=== PATIENT | female | born 1950 | race Caucasian/White ===

== ENCOUNTER → 2017-03-23 | Outpatient (CLI) | payer MEDICARE, OTHER ==
[~2017-03-23] MED LIST: ADVIL200 MG PO; AMLODIPINE BESYL5 MG PO; ASPIR 8181 M1 PO; ASPIRIN325 MG PO; ATORVASTATIN CA80 MG PO; BENICAR HCT 201 EACH PO; CLONIDINE HCL0.1 MG PO; CLOPIDOGREL75 MG PO; FIORICET 50-301 EACH PO; GLIMEPIRIDE4 MG PO; GLUCOPHAGE1000 MG PO; LISINOPRIL-HCT1 EAC3 PO; SUMATRIPTAN SUC25 MG PO; TYLENOL EXTRA500 MG PO; Vitamin B-12 PO
== END | disposition home or self-care (01) ==
LOC: CDC 12:45
DX: I25.10 Atherosclerotic heart disease of native coronary artery without angina pectoris (principal)
CPT/HCPCS: 93000

== ENCOUNTER 2017-03-31 08:02 | Day surgery (SDC) | payer OTHER ==
[~2017-03-31] VITALS: Ht 160 cm; Wt 64.4 kg
[~2017-03-31 08:02] MED LIST changes: +AMLODIPINE BESY10 MG PO; +CALCITRIOL0.25 MCG PO; +CYANOCOBALAM1000 MCG PO; +LABETALOL HCL200 MG PO; +VITAMIN D32000 UNI1 PO
[2017-03-31 08:37] VITALS: BP 147/71
[2017-03-31 09:06] LABS: MCH 28.6 PG (29.0-34.0); MCHC 32.7 G/DL (30.0-36.0); MCV 87.5 FL (83-99); MEAN PLAT.VOLUME 9.7 uM^3 (9.5-12.4); PLATELET COUNT 216 K/uL (156-360); RBC DIS.WIDTH-CV 14.1 % (11.8-14.6); RBC DIS.WIDTH-SD 45.4 % (39-53); RED BLOOD COUNT 3.43 M/uL (3.80-5.20); WHITE BLOOD COUNT 9.1 K/uL (4.1-10.2)
[2017-03-31 09:30] LABS: ANION GAP 12 MEQ/L (2-14); CHLORIDE 108 MEQ/L (99-109); GFR ESTIMATE (CALCULATED) 10 mL/min/; GLUCOSE 107 mg/dL (70-99); POTASSIUM 4.4 MEQ/L (3.7-5.4); SAMPLE HEMOLYSIS CHECK 0; SAMPLE ICTERIC CHECK 0; SAMPLE LIPEMIA CHECK 0; SODIUM 141 MEQ/L (136-147); UREA NITROGEN (BUN) 63 mg/dL (9-23)
[2017-03-31 11:36] LABS: POINT-OF-CARE USER ID 515036437
[2017-03-31 16:50] VITALS: BP 126/80
[2017-03-31 17:33] VITALS: BP 134/57
== END 2017-03-31 17:50 | disposition home or self-care (01) ==
LOC: SDC 08:02
PROVIDERS: Surgery
PROC: 03180JD Bypass Left Brachial Artery to Upper Arm Vein with Synthetic Substitute, Open Approach (ICD-10-PCS; principal; 2017-03-31)
PROC: 05WY0JZ Revision of Synthetic Substitute in Upper Vein, Open Approach (ICD-10-PCS; 2017-03-31)
DX: I12.0 Hypertensive chronic kidney disease with stage 5 chronic kidney disease or end stage renal disease (principal); E11.22 Type 2 diabetes mellitus with diabetic chronic kidney disease; N18.6 End stage renal disease; Z86.73 Personal history of transient ischemic attack (TIA), and cerebral infarction without residual deficits; E78.00 Pure hypercholesterolemia, unspecified; Z79.82 Long term (current) use of aspirin; T82.898A Other specified complication of vascular prosthetic devices, implants and grafts, initial encounter; Y83.2 Surgical operation with anastomosis, bypass or graft as the cause of abnormal reaction of the patient, or of later complication, without mention of misadventure at the time of the procedure
CPT/HCPCS: 80048; 82948; 85027; C2628; J0690; J1644; J2250; J2405; J2720; J2765; J3010

== ENCOUNTER 2017-04-02 19:08 | Inpatient (IN) | payer OTHER ==
[~2017-04-02] VITALS: Ht 160 cm; Wt 68.2 kg
[2017-04-02 20:53] LABS: BASOPHIL COUNT 0.1 K/uL (0-0.1); EOSINOPHIL COUNT 0.2 K/uL (0-0.3); HEMATOCRIT 28.9 % (36.0-46.0); IMMATURE GRANULOCYTE (%) 0.7 % (0.0-0.7); IMMATURE GRANULOCYTE COUNT 0.1 K/uL; LYMPHOCYTE COUNT 0.8 K/uL (1.0-2.8); MCH 28.9 PG (29.0-34.0); MCHC 32.5 G/DL (30.0-36.0); MCV 88.9 FL (83-99); MEAN PLAT.VOLUME 10.1 uM^3 (9.5-12.4); MONOCYTE (%) 8.4 % (3-12); MONOCYTE COUNT 1.4 K/uL (0-0.8); NEUTROPHIL (%) 84.5 % (45-76); PLATELET COUNT 201 K/uL (156-360); RBC DIS.WIDTH-CV 14.3 % (11.8-14.6); RBC DIS.WIDTH-SD 46.5 % (39-53); RED BLOOD COUNT 3.25 M/uL (3.80-5.20); WHITE BLOOD COUNT 16.6 K/uL (4.1-10.2)
[2017-04-02 21:00] LABS: CHLORIDE 108 mEq/L (99-109)
[2017-04-02 21:01] LABS: SODIUM 136 mEq/L (136-147)
[2017-04-02 21:02] LABS: GLUCOSE 129 mg/dL (70-99)
[2017-04-02 21:04] LABS: ANION GAP 9 MEQ/L (2-14); POTASSIUM 5.4 mEq/L (3.7-5.4)
[2017-04-02 21:06] LABS: GFR ESTIMATE (CALCULATED) 8 mL/min/
[2017-04-02 21:07] LABS: UREA NITROGEN (BUN) 85 mg/dL (9-23)
[2017-04-02 21:13] LABS: TROP-I INTERPRETATION NEGATIVE; TROPONIN-I 0.02 ng/mL (0.0-0.30)
[2017-04-03] MEDS ORDERED: VITAMIN B-12500 MC5 SL (00:20)
[2017-04-03] MEDS ORDERED: LABETALOL HCL200 MG PO (00:21)
[2017-04-03] MEDS ORDERED: LABETALOL HCL100 MG PO (00:22)
[2017-04-03] MEDS ORDERED: ASPIR 8181 M1 PO (00:22)
[2017-04-03] MEDS ORDERED: PLAVIX75 MG PO (00:23)
[2017-04-03] MEDS ORDERED: STOOL SOFTENER100 M1 PO (00:24)
[2017-04-03] MEDS ORDERED: HYDROCODON-ACE1 EAC7 PO (00:24)
[2017-04-03 03:05] VITALS: BP 153/67
[2017-04-03 06:45] VITALS: BP 149/69
[2017-04-03 07:07] LABS: BASOPHIL COUNT 0.1 K/uL (0-0.1); EOSINOPHIL (%) 0.9 % (0-5); EOSINOPHIL COUNT 0.1 K/uL (0-0.3); HEMATOCRIT 27.3 % (36.0-46.0); IMMATURE GRANULOCYTE (%) 0.7 % (0.0-0.7); IMMATURE GRANULOCYTE COUNT 0.1 K/uL; INSTRUMENT ABS NEUTROPHIL CT 12.6 K/uL; LYMPHOCYTE COUNT 0.9 K/uL (1.0-2.8); MCH 28.7 PG (29.0-34.0); MCHC 31.9 G/DL (30.0-36.0); MCV 90.1 FL (83-99); MEAN PLAT.VOLUME 10.7 uM^3 (9.5-12.4); MONOCYTE (%) 8.7 % (3-12); MONOCYTE COUNT 1.3 K/uL (0-0.8); NEUTROPHIL (%) 83.3 % (45-76); NEUTROPHIL COUNT 12.6 K/uL (1.8-6.4); PLATELET COUNT 192 K/uL (156-360); RBC DIS.WIDTH-CV 14.2 % (11.8-14.6); RBC DIS.WIDTH-SD 46.6 % (39-53); RED BLOOD COUNT 3.03 M/uL (3.80-5.20); WHITE BLOOD COUNT 15.1 K/uL (4.1-10.2)
[2017-04-03 07:36] LABS: ANION GAP 11 MEQ/L (2-14); CHLORIDE 105 MEQ/L (99-109); GFR ESTIMATE (CALCULATED) 8 mL/min/; GLUCOSE 109 mg/dL (70-99); POTASSIUM 5.2 MEQ/L (3.7-5.4); SAMPLE HEMOLYSIS CHECK 0; SAMPLE ICTERIC CHECK 0; SAMPLE LIPEMIA CHECK 0; SODIUM 136 MEQ/L (136-147); UREA NITROGEN (BUN) 82 mg/dL (9-23)
[2017-04-03 07:44] LABS: ADD MIUA? YES; BILIRUBIN NEGATIVE; BLOOD SMALL; COLOR YELLOW ((YELLOW)); GLUCOSE (STRIP) 50; KETONES NEGATIVE; LEUKOCYTES NEGATIVE; NITRITE NEGATIVE; PROTEIN (STRIP) 100; SPECIFIC GRAVITY 1.008 (1.000-1.030); UROBILINOGEN 0.2 MG/DL (0.2-1.0)
[2017-04-03 07:55] LABS: BACTERIA RARE /HPF; EPITHELIAL CELLS NONE SEEN /HPF; MUCUS TRACE /LPF; RED BLOOD CELLS 0-5 /HPF (0-5); WHITE BLOOD CELLS 0-5 /HPF (0-5)
[2017-04-03 11:14] VITALS: BP 140/62
[2017-04-03 15:36] VITALS: BP 133/61
[2017-04-03 16:18] LABS: POINT-OF-CARE METER ID UU13113725
[2017-04-03 18:44] VITALS: BP 124/60
[2017-04-03 20:52] LABS: POINT-OF-CARE METER ID UU13113725
[2017-04-03 22:42] VITALS: BP 132/61
[2017-04-03 23:42] LABS: POINT-OF-CARE METER ID UU13113725
[2017-04-04 02:37] VITALS: BP 109/54
[2017-04-04 05:37] LABS: POINT-OF-CARE METER ID UU13113725
[2017-04-04 06:11] LABS: HEMATOCRIT 24.8 % (36.0-46.0); MCH 28.6 PG (29.0-34.0); MCHC 32.3 G/DL (30.0-36.0); MCV 88.6 FL (83-99); MEAN PLAT.VOLUME 10.5 uM^3 (9.5-12.4); PLATELET COUNT 199 K/uL (156-360); RBC DIS.WIDTH-CV 13.8 % (11.8-14.6); RBC DIS.WIDTH-SD 45.1 % (39-53); WHITE BLOOD COUNT 11.2 K/uL (4.1-10.2)
[2017-04-04 06:34] LABS: ANION GAP 13 MEQ/L (2-14); CHLORIDE 104 MEQ/L (99-109); GFR ESTIMATE (CALCULATED) 7 mL/min/; GLUCOSE 89 mg/dL (70-99); POTASSIUM 4.4 MEQ/L (3.7-5.4); SAMPLE HEMOLYSIS CHECK 0; SAMPLE ICTERIC CHECK 0; SAMPLE LIPEMIA CHECK 0; SODIUM 137 MEQ/L (136-147); UREA NITROGEN (BUN) 79 mg/dL (9-23)
[2017-04-04 06:35] VITALS: BP 130/62
[2017-04-04 10:58] VITALS: BP 113/56
[2017-04-04 14:31] VITALS: BP 126/61
[2017-04-04 19:01] VITALS: BP 127/60
[2017-04-04 22:57] VITALS: BP 141/63
[2017-04-05 03:27] VITALS: BP 128/60
[2017-04-05 06:07] LABS: POINT-OF-CARE METER ID UU13113725
[2017-04-05 06:45] VITALS: BP 179/69
[2017-04-05 07:23] LABS: ANION GAP 13 MEQ/L (2-14); CHLORIDE 103 MEQ/L (99-109); GFR ESTIMATE (CALCULATED) 7 mL/min/; GLUCOSE 90 mg/dL (70-99); POTASSIUM 3.9 MEQ/L (3.7-5.4); SAMPLE HEMOLYSIS CHECK 0; SAMPLE ICTERIC CHECK 0; SAMPLE LIPEMIA CHECK 0; SODIUM 139 MEQ/L (136-147); UREA NITROGEN (BUN) 82 mg/dL (9-23)
[2017-04-05 11:00] VITALS: BP 136/71
[2017-04-05 11:05] LABS: POINT-OF-CARE METER ID UU13113725
[2017-04-05 15:00] VITALS: BP 134/67
[2017-04-05 16:19] LABS: POINT-OF-CARE METER ID UU13113725
[2017-04-05 19:22] VITALS: BP 134/61
[2017-04-05 21:10] LABS: POINT-OF-CARE METER ID UU13113725
[2017-04-05 23:39] VITALS: BP 125/56
[2017-04-06 05:33] LABS: POINT-OF-CARE METER ID UU13113725
[2017-04-06 06:45] VITALS: BP 163/69
[2017-04-06 06:49] LABS: ANION GAP 14 MEQ/L (2-14); CHLORIDE 101 MEQ/L (99-109); GFR ESTIMATE (CALCULATED) 8 mL/min/; GLUCOSE 102 mg/dL (70-99); POTASSIUM 4.4 MEQ/L (3.7-5.4); SAMPLE HEMOLYSIS CHECK 0; SAMPLE ICTERIC CHECK 0; SAMPLE LIPEMIA CHECK 0; SODIUM 138 MEQ/L (136-147); UREA NITROGEN (BUN) 78 mg/dL (9-23)
[2017-04-06 11:10] VITALS: BP 150/72
[2017-04-06] MEDS ORDERED: FUROSEMIDE40 MG PO (11:13)
[2017-04-06] MEDS ORDERED: CALCIUM ACETAT667 MG PO (11:13)
[2017-04-06 11:41] LABS: POINT-OF-CARE METER ID UU13113725
[2017-04-06] MEDS ORDERED: AUGMENTIN500 MG PO (11:50)
== END 2017-04-06 13:11 | disposition home or self-care (01) | DRG 871 ==
LOC: EME 19:08 → EDOF 04-03 00:30 → 5EAST 04-03 00:30
PROVIDERS: Emergency Medicine; Hospitalist; Internal Medicine
DX: A41.9 Sepsis, unspecified organism (principal); J96.21 Acute and chronic respiratory failure with hypoxia; J69.0 Pneumonitis due to inhalation of food and vomit; I50.33 Acute on chronic diastolic (congestive) heart failure; D63.1 Anemia in chronic kidney disease; E11.21 Type 2 diabetes mellitus with diabetic nephropathy; E11.22 Type 2 diabetes mellitus with diabetic chronic kidney disease; E55.9 Vitamin D deficiency, unspecified; E78.5 Hyperlipidemia, unspecified; E83.39 Other disorders of phosphorus metabolism; I13.2 Hypertensive heart and chronic kidney disease with heart failure and with stage 5 chronic kidney disease, or end stage renal disease; I35.0 Nonrheumatic aortic (valve) stenosis; J95.89 Other postprocedural complications and disorders of respiratory system, not elsewhere classified; N04.9 Nephrotic syndrome with unspecified morphologic changes; N25.81 Secondary hyperparathyroidism of renal origin; T82.898A Other specified complication of vascular prosthetic devices, implants and grafts, initial encounter; Y83.8 Other surgical procedures as the cause of abnormal reaction of the patient, or of later complication, without mention of misadventure at the time of the procedure; Z80.8 Family history of malignant neoplasm of other organs or systems; Z82.49 Family history of ischemic heart disease and other diseases of the circulatory system; Z86.73 Personal history of transient ischemic attack (TIA), and cerebral infarction without residual deficits; N28.1 Cyst of kidney, acquired; M79.602 Pain in left arm; N18.5 Chronic kidney disease, stage 5
CPT/HCPCS: 71010; 71250; 80048; 80069; 81003; 82306; 82948; 83605; 83880; 84484; 85025; 85027; 87040; 87070; 87205; 93005; 93971; 93990; 94640; 94799; 99281; 99284; J0295; J0456; J0696; J0881; J1644; J1815; J1940; J2270; J2405; J7050